=== PATIENT | male | born 1945 | race Caucasian/White ===

== ENCOUNTER 2020-03-29 06:02 | Observation (INO) | payer MEDICARE ==
[~2020-03-29] VITALS: Ht 182.9 cm; Wt 100.0 kg
[2020-03-29] MEDS ORDERED: SODIUM CHLORIDE 0.9% 1,000 ML IV SCH ×2 (06:32→07:08)
[2020-03-29] MEDS ORDERED: DIGO250T3 PO (06:41)
[2020-03-29] MEDS ORDERED: LISI2.5T PO (06:41)
[2020-03-29] MEDS ORDERED: TAMS-11 PO (06:41)
[2020-03-29] MEDS ORDERED: RIVA20TA PO (06:41)
[2020-03-29] MEDS ORDERED: FINA5TAB4 PO (06:41)
[2020-03-29] MEDS ORDERED: METF500T17 PO (06:41)
[2020-03-29] MEDS ORDERED: MULT-658 PO (06:41)
[2020-03-29] MEDS ORDERED: METO25TA35 PO (06:41)
[2020-03-29] MEDS ORDERED: SIMV20TA19 PO (06:41)
[2020-03-29 07:03] LABS: BASOPHILS # (AUTO) 0.03 x10^3/uL (0-0.1); BASOPHILS % (AUTO) 0 % (0-1); EOSINOPHILS # (AUTO) 0.17 x10^3/uL (0-0.4); EOSINOPHILS % (AUTO) 3 % (1-7); LYMPHOCYTES # (AUTO) 1.83 x10^3/uL (1-3.4); LYMPHOCYTES % (AUTO) 28 % (22-44); MD NO; MEAN CORPUSCULAR HEMOGLOBIN 28.7 pg (27.5-34.5); MEAN CORPUSCULAR HGB CONC 32.8 g/dL (33.2-36.2); MEAN CORPUSCULAR VOLUME 87.5 fL (81-97); MEAN PLATELET VOLUME 9.1 fL (7.4-10.4); MONOCYTES % (AUTO) 9 % (2-9); NEUTROPHILS # (AUTO) 3.96 x10^3/uL (1.8-6.8); NEUTROPHILS % (AUTO) 60 % (42-75); PLATELET COUNT 153 x10^3/uL (130-400); RED BLOOD COUNT 4.55 x10^6/uL (4.38-5.82); RED CELL DISTRIBUTION WIDTH 15.4 % (9.4-14.8)
[2020-03-29 07:10] LABS: ANION GAP 9 mmol/L (5-15); CALCIUM 8.6 mg/dL (8.5-10.1); CHLORIDE 113 mmol/L (98-107); CREATININE 1.32 mg/dL (0.7-1.3)
[2020-03-29] MEDS ORDERED: MIDAZOLAM 1 MG/ML, 5ML ONE (07:30)
[2020-03-29] MEDS ORDERED: FENTANYL PF 100 MCG/2ML ONE ×2 (07:31→08:01)
[2020-03-29] MEDS ORDERED: LIDOCAINE 2%, 20ML ONE (07:31)
[2020-03-29] MEDS ORDERED: ISOPROTERENOL 0.2MG/ML, 5ML ONE (07:31)
[2020-03-29] MEDS ORDERED: OXYcodone 5 MG/5 ML ORAL.SOL UDC PO PRN (08:00)
[2020-03-29] MEDS ORDERED: HYDROmorphone 1 MG/ML, 1ML INJ IVPush PRN (08:00)
[2020-03-29] MEDS ORDERED: MEPERIDINE/PF 25MG/0.5ML IVPush PRN (08:00)
[2020-03-29] MEDS ORDERED: hydrALAzine 20 MG/ML, 1ML IV PRN (08:00)
[2020-03-29] MEDS ORDERED: EPHEDRINE 50 MG/ML, 1ML IVPush PRN (08:00)
[2020-03-29] MEDS ORDERED: FENTANYL PF 100 MCG/2ML IV PRN (08:00)
[2020-03-29] MEDS ORDERED: ONDANSETRON 2MG/ML, 2ML IVPush PRN (08:00)
[2020-03-29] MEDS ORDERED: ACETAMINOPHEN 325 MG TABLET PO PRN ×2 (08:00→18:30)
[2020-03-29] MEDS ORDERED: PROMETHAZINE 25 MG/ML, 1ML IVPush PRN (08:00)
[2020-03-29] MEDS ORDERED: LABETALOL 5MG/ML, 20ML IV PRN (08:00)
[2020-03-29] MEDS ORDERED: PROPOFOL 10 MG/ML, 20ML ONE (08:36)
[2020-03-29] MEDS ORDERED: DEXAMETHASONE 4 MG/ML, 1ML ONE (08:36)
[2020-03-29] MEDS ORDERED: SUCCINYLCHOLINE 20 MG/ML, 10ML ONE (08:36)
[2020-03-29] MEDS ORDERED: ONDANSETRON 2MG/ML, 2ML ONE (08:36)
[2020-03-29] MEDS ORDERED: ROCURONIUM 10MG/ML,5ML ONE ×2 (08:36→10:03)
[2020-03-29] MEDS ORDERED: SUGAMMADEX 200 MG/2 ML IVPush ONE (08:37)
[2020-03-29] MEDS ORDERED: PHENYLEPHRINE 10 MG/ML ONE ×4 (08:50→09:31)
[2020-03-29] MEDS ORDERED: EPINEPHRINE 1 MG/ML, 1ML ONE ×3 (08:52→10:16)
[2020-03-29] MEDS ORDERED: HEPARIN 1,000 UNITS/ML, 10ML ONE ×4 (10:03→11:50)
[2020-03-29] MEDS ORDERED: VASOPRESSIN 20 UNIT/ML, 1ML ONE (10:15)
[2020-03-29] MEDS ORDERED: RIVAROXABAN 20 MG TABLET PO SCH (13:33)
[2020-03-29] MEDS ORDERED: SOTALOL 80MG TABLET PO ONE (14:30)
[2020-03-29] MEDS ORDERED: ONDANSETRON ODT 4 MG PO PRN (18:30)
[2020-03-29 19:28] VITALS: BP 112/65
[2020-03-29] MEDS ORDERED: SIMVASTATIN 20 MG TABLET PO SCH (21:00)
[2020-03-29] MEDS: metFORMIN 500 MG TABLET PO SCH (21:00)
[2020-03-30 01:36] VITALS: BP 114/71
[2020-03-30 06:40] VITALS: BP 138/80
[2020-03-30] MEDS ORDERED: RIVAROXABAN 20 MG TABLET PO SCH (08:00)
[2020-03-30] MEDS: metFORMIN 500 MG TABLET PO SCH (08:06)
[2020-03-30] MEDS ORDERED: MULTIVITAMIN 1 TABLET PO SCH (09:00)
[2020-03-30] MEDS ORDERED: LISINOPRIL 5 MG TABLET PO SCH (09:00)
[2020-03-30] MEDS ORDERED: FINASTERIDE 5 MG TABLET PO SCH (09:00)
[2020-03-30] MEDS ORDERED: TAMSULOSIN 0.4 MG CAP.ER.24H PO SCH (09:00)
[2020-03-30] MEDS ORDERED: DIGOXIN 0.25 MG TABLET PO SCH (09:00)
[2020-03-30 09:29] VITALS: BP 116/70
[2020-03-30] MEDS ORDERED: SOTA80TA18 PO (12:10)
[2020-03-30] MEDS ORDERED: SOTALOL 80MG TABLET PO SCH (18:00)
== END 2020-03-30 14:22 | disposition home or self-care (01) ==
LOC: CACL 06:02 → ORIP 12:40 → 5SO 14:40 → DCLOUNGE 03-30 14:20
PROVIDERS: ADMIT Internal Medicine Cardiovascular Disease; ATTEND Internal Medicine Cardiovascular Disease
DX: Z03.818 Encounter for observation for suspected exposure to other biological agents ruled out (principal); I48.91 Unspecified atrial fibrillation; I48.4 Atypical atrial flutter; I10 Essential (primary) hypertension; E11.9 Type 2 diabetes mellitus without complications; E78.5 Hyperlipidemia, unspecified; Z79.01 Long term (current) use of anticoagulants; Z79.899 Other long term (current) drug therapy
CPT/HCPCS: 36415; 71046; 80048; 85025; 85347; 87635; 93306; 93312; 93321; 93325; 93613; 93656; 93657; 93662; C1730; C1732; C1759; C1766; C1893; C1894; G0378; J0171; J0330; J1100; J1644; J2370; J2405; J2704; J3010; J3490; J2250